=== PATIENT | male | born 1990 | race Caucasian/White ===

== ENCOUNTER 2023-07-30 13:13 | Emergency (ER) | payer MEDICAID, OTHER ==
[~2023-07-30] VITALS: Ht 188 cm; Wt 88.5 kg
[2023-07-30 13:57] VITALS: BP_SYST 126; PULSE 85; RESP 18; TEMP 97.8; O2SAT 98
[2023-07-30] MEDS ORDERED: FLUT16SP16 NS (15:06)
[2023-07-30] MEDS ORDERED: AUG875 PO (15:06)
[2023-07-30 15:11] VITALS: BP_SYST 126; PULSE 85; RESP 18; TEMP 97.8; O2SAT 98
== END 2023-07-30 15:17 | disposition home or self-care (01) ==
LOC: SED 13:13
DX: J32.9 Chronic sinusitis, unspecified (principal); R05.9 Cough, unspecified; R09.81 Nasal congestion; Z79.899 Other long term (current) drug therapy
CPT/HCPCS: 99283

== ENCOUNTER 2023-10-13 12:29 | Emergency (ER) | payer OTHER ==
[~2023-10-13] VITALS: Ht 188 cm; Wt 89.4 kg
[~2023-10-13 12:29] MED LIST: AUG875 PO; FLUT16SP16 NS
[2023-10-13 12:47] VITALS: BP_SYST 138; PULSE 81; RESP 15; TEMP 97.5; O2SAT 98
[2023-10-13] MEDS ORDERED: DOXY100C5 PO (12:48)
[2023-10-13 12:53] VITALS: BP_SYST 138; PULSE 81; RESP 15; TEMP 97.5; O2SAT 98
[2023-10-13] MEDS: DIPHTH,PERTUSS(ACELL),TET VAC 0.5 ML VIAL (Tdap) I.M. ONE (16:28)
== END 2023-10-13 13:00 | disposition home or self-care (01) ==
LOC: SED 12:29
DX: L03.115 Cellulitis of right lower limb (principal); Z79.899 Other long term (current) drug therapy
CPT/HCPCS: 90715; 99283

== ENCOUNTER 2023-11-15 14:02 | Emergency (ER) | payer OTHER ==
[~2023-11-15] VITALS: Ht 188 cm; Wt 88.5 kg
[~2023-11-15 14:02] MED LIST changes: +DOXY100C5 PO
[2023-11-15 14:54] VITALS: BP_SYST 122; PULSE 87; RESP 18; TEMP 97; O2SAT 98
[2023-11-15] MEDS ORDERED: cloNIDine HCL 0.1 MG TABLET ONE (16:08)
[2023-11-15] MEDS ORDERED: AMOX-423 PO (16:10)
[2023-11-15] MEDS ORDERED: ONDA-8 TL (16:11)
[2023-11-15 16:20] VITALS: BP_SYST 122; PULSE 87; RESP 18; TEMP 97; O2SAT 98
== END 2023-11-15 16:16 | disposition home or self-care (01) ==
LOC: SED 14:02
DX: J01.90 Acute sinusitis, unspecified (principal); F17.210 Nicotine dependence, cigarettes, uncomplicated; F20.9 Schizophrenia, unspecified; F31.9 Bipolar disorder, unspecified; Z71.6 Tobacco abuse counseling; Z98.890 Other specified postprocedural states
CPT/HCPCS: 99283